=== PATIENT | male | born 1990 | race Caucasian/White ===

== ENCOUNTER → 2016-09-22 | Outpatient (CLI) | payer OTHER ==
--- NOTE | 2016-09-23 19:10 | ECHO ---
DATE OF PROCEDURE: 09/22/2016 REFERRING PHYSICIAN: Nick Canlea INDICATIONS: Palpitations. Study was performed on September 22 on outpatient basis. HEIGHT: 180 cm WEIGHT: 55 kg DIMENSIONS: IVS: 0.9 LV: 3.4 LVPW: 1.0 LA: 2.2 Aorta: 2.6 FINDINGS: The study is of excellent technical quality. Left ventricle is of normal size and systolic function with estimated EF 60-65%. Right ventricle is also normal size and systolic function. Both atria appear normal. All four cardiac valves appear normal. No pericardial effusion is noted. Inferior vena cava is normal size and appropriately collapses with respiration. Aortic root, aortic arch and abdominal aorta are intact. Doppler interrogation reveals no aortic stenosis or insufficiency. There is trace mitral and trace tricuspid insufficiency. Unfortunately quality of TR signal was not sufficient to adequately estimate pulmonary artery pressure. Pulmonic valve is functionally competent. Mitral inflow pattern and tissue Doppler imaging of mitral annulus reveal normal diastolic function of the left ventricle. CONCLUSIONS: 1. Study is of excellent technical quality. 2. Normal LV size, systolic and diastolic function. 3. No significant valvular disease. 4. Normal central venous pressure. 5. Normal echocardiogram. COMMENT: Subacute bacterial endocarditis is not recommended.
== END ==
LOC: M CARPUL 11:48
PROVIDERS: ATTEND Internal Medicine
DX: R00.2 Palpitations (principal)